=== PATIENT | female | born 1960 | race Caucasian/White ===

== ENCOUNTER 2017-07-11 06:35 | Day surgery (SDC) | payer OTHER ==
[~2017-07-11] VITALS: Ht 317.5 cm; Wt 72.0 kg
[2017-07-11] VITALS (7 sets, daily range): BP systolic 99–142; BP diastolic 51–64; PULSE 85–102; RESP 14–20; Ht 317.5 cm; Wt 72.0 kg
[~2017-07-11 06:35] MED LIST: ALLOPURINOL; FENO200 PO; GABA300C16 PO; GLIM4TAB PO; HYDR25TA6 PO; METF500T4 PO; TAMOXIFEN
[2017-07-11] MEDS ORDERED: CEFAZOLIN 1 GM/50 ML (PMX) 50 ML IVPB ONE (07:00)
[2017-07-11] MEDS ORDERED: SOD CHLORIDE 0.9% 1,000 ML IV ONE (07:00)
[2017-07-11] MEDS ORDERED: NOL20 PO (07:31)
[2017-07-11] MEDS ORDERED: RANI150T5 PO (07:31)
[2017-07-11] MEDS ORDERED: GLIM4TAB PO (07:31)
[2017-07-11] MEDS ORDERED: SIMV20TA PO (07:32)
[2017-07-11] MEDS ORDERED: GABA-526 PO (07:32)
[2017-07-11] MEDS ORDERED: GEMF600T60 PO (07:33)
[2017-07-11 08:29] LABS: BASOPHIL # 0.1 10^3/ul (0.0-0.1); BASOPHILS % 0.8 % (0.0-2.0); EOSINOPHILS # 0.1 10^3/ul (0.0-0.5); EOSINOPHILS % 2.3 % (0.0-7.0); LYMPHOCYTES # 1.3 10^3/ul (0.8-2.9); LYMPHOCYTES % 20.8 % (15.0-51.0); MEAN CORPUSCULAR HEMOGLOBIN 27.4 pg (29.0-33.0); MEAN CORPUSCULAR HGB CONC 32.4 g/dl (32.0-37.0); MEAN CORPUSCULAR VOLUME 84.5 fl (82.0-101.0); MEAN PLATELET VOLUME 11.2 fl (7.4-10.4); MONOCYTE # 0.3 10^3/ul (0.3-0.9); MONOCYTES % 4.3 % (0.0-11.0); NEUTROPHIL # 4.4 10^3/ul (1.6-7.5); NEUTROPHILS % 71.3 % (39.0-77.0); PLATELET COUNT 274 10^3/UL (140-415); RED BLOOD COUNT 4.38 10^6/ul (4.20-5.40); RED CELL DISTRIBUTION WIDTH 13.1 % (11.5-14.5); WHITE BLOOD COUNT 6.1 10^3/ul (4.8-10.8)
[2017-07-11 08:47] LABS: ALBUMIN 4.6 g/dl (3.3-4.9); ALBUMIN/GLOBULIN RATIO 1.27; BILIRUBIN,INDIRECT 0.1 mg/dl (0-1.1); BILIRUBIN,TOTAL 0.1 mg/dl (0.2-1.3); TOTAL PROTEIN 8.2 g/dl (6.1-8.1)
[2017-07-11 08:49] LABS: INR 0.93; PARTIAL THROMBOPLASTIN TIME 25.2 Sec (25.0-35.0); PROTIME 12.5 Sec (12.2-14.2)
[2017-07-11 09:03] LABS: CALCIUM 9.6 mg/dl (8.4-10.2); CREATININE 0.74 mg/dl (0.44-1.00)
[2017-07-11] MEDS ORDERED: LIDOCAINE 2% (SDV) 5 ML INJ ONE (09:54)
[2017-07-11] MEDS ORDERED: MEPERIDINE 100 MG INJ ONE (09:54)
[2017-07-11] MEDS ORDERED: PROPOFOL 20 ML ONE (09:54)
[2017-07-11] MEDS ORDERED: FENTAnyl 50 MCG/ML VIAL IV PRN ×3 (10:00)
[2017-07-11] MEDS ORDERED: MIDAZOLAM 1 MG/ML 2 ML INJ IV PRN (10:00)
[2017-07-11] MEDS ORDERED: hydrALAzine 20 MG INJ IV PRN (10:00)
[2017-07-11] MEDS ORDERED: LABETALOL HCL 20MG INJ IV PRN (10:00)
[2017-07-11] MEDS ORDERED: OXYCODONE/ACETAMINOPHEN (5/325) TAB PO PRN ×2 (10:00)
[2017-07-11] MEDS ORDERED: EPHEDrine SULFATE 50 MG/5 ML SYG IV PRN (10:00)
[2017-07-11] MEDS ORDERED: DIPHENHYDRAMINE 50 MG INJ IV PRN (10:00)
[2017-07-11] MEDS ORDERED: METOCLOPRAMIDE 10 MG INJ IV PRN (10:00)
[2017-07-11] MEDS ORDERED: ONDANSETRON 4 MG INJ IV PRN (10:00)
[2017-07-11] MEDS ORDERED: MEPERIDINE 25 MG INJ IV PRN (10:00)
[2017-07-11] MEDS ORDERED: HYDROmorphONE (0.2 MG/ML) 10ML SYG IV PRN ×3 (10:00)
[2017-07-11] MEDS ORDERED: BUPIVACAINE 0.5%/EPI (SDV) 30 ML INJ ONE (10:20)
--- NOTE | 2017-07-11 10:20 | RADRPT ---
PROCEDURE: XR Chest. CLINICAL INDICATION: Preoperative. TECHNIQUE: Single frontal view. COMPARISON: None. FINDINGS: The lungs are clear. There is a right internal jugular vein implanted port central venous catheter w ith the tip in the cavoatrial junction region. The heart size is normal. There is no pleural effusion. There is no pneumothorax. IMPRESSION: 1. Central line in satisfactory position. 2. Otherwise normal chest radiograph. RPTAT: QQ .Scott José MD, MD Date Time Electronically viewed and signed by .Scott José MD, on 07/11/2017 10:19 .R/
[2017-07-11] MEDS ORDERED: CEFAZOLIN 1 GM INJ ONE (10:26)
--- NOTE | 2017-07-11 10:35 | SIPON ---
Date/Time of Note Date/Time of Note DATE: 07/11/17 TIME: 10:34 Operative Report Preoperative Diagnosis History of breast cancer need for chemotherapy port removal Postoperative Diagnosis Same Operation/Procedure Performed Removal of Chemo-Port right subclavian location Surgeon see signature line registered dental assistant Dr Walls Anesthesia: general Estimated blood loss: 0 - 10 ml's Transfusion Required none Specimen Chemo-Port gross only Grafts/Implants none Complications none JASBIR FREEMAN MD Jul 11, 2017 10:35
--- NOTE | 2017-07-11 11:19 | OPR ---
DATE OF OPERATION: 07/11/2017 PREOPERATIVE DIAGNOSIS: History of breast cancer, need for chemotherapy port removal. POSTOPERATIVE DIAGNOSIS: History of breast cancer, need for chemotherapy port removal. OPERATION PERFORMED: Removal of chemo port right subclavian location. ANESTHESIA: General. ANESTHESIOLOGIST: MD [facility] HOME ADMINISTRATOR: . INDICATIONS FOR PROCEDURE: The patient is a 56-year-old female who I previously treated for invasiv e cancer of her left breast mass. She completed her treatment successfully and requested removal of her chemotherapy port. She consented and was scheduled for surgery. DESCRIPTION OF PROCEDURE: The patient was brought to the operating theater, placed under general an esthesia. The right subclavian region was prepped and draped in usual sterile fashion. Previous mattson rgical incisional scar over the port was reincised with 15 blade scalpel. Subcutaneous tissue was d issected with cautery down to the pseudocapsule surrounding the port. The fixation sutures were mariaelena ntified and transected. The port was then elevated and gently removed while pressure was held in an infraclavicular location. The port appeared to be grossly intact. It was sent for permanent patho logic analysis to ensure that it was intact. Minimal bleeding was then controlled with cautery, and the skin was reapproximated with a 4-0 Vicryl suture in subcuticular fashion, and benzoin and Steri -Strips were applied. Patient tolerated procedure well. ESTIMATED BLOOD LOSS: 10 mL. COMPLICATIONS: There were no complications. DISPOSITION: The patient was transported in stable condition to the recovery room. Dictated By: JASBIR BRAUN/TATY Conf#: [id number] DID#: [id number]
--- NOTE | 2017-07-11 16:56 | RADRPT ---
Vent Rate: 94 bpm RR Interval: 0 msec OR Interval: 138 msec QRS Duration: 82 msec QT Interval: 390 msec QTC Interval: 487 msec P-R-T [place]: 67 - 57 - 48 degrees Normal sinus rhythm Prolonged QT Abnormal ECG Electronically Signed By: Andrea Henriquez [id number]
== END 2017-07-11 11:50 | disposition home or self-care (01) ==
LOC: SDS 06:35
PROVIDERS: ATTEND Surgery Surgical Oncology
DX: Z45.2 Encounter for adjustment and management of vascular access device (principal); Z85.3 Personal history of malignant neoplasm of breast; I10 Essential (primary) hypertension; E11.9 Type 2 diabetes mellitus without complications; K29.70 Gastritis, unspecified, without bleeding
CPT/HCPCS: 36590; 71010; 80053; 82962; 85025; 85610; 85730; 88300; 93005; J0690; J2175; Z7512; Z7610